=== PATIENT | male | born 1940 | race Asian ===

== ENCOUNTER 2018-05-06 08:26 | Emergency (ER) | payer OTHER, MEDICAID ==
[~2018-05-06] VITALS: Ht 167.6 cm; Wt 68.0 kg
[2018-05-06 08:34] VITALS: Ht 167.6 cm; Wt 68.0 kg
[2018-05-06] MEDS ORDERED: FINASTERIDE5 M1 PO (09:20)
[2018-05-06] MEDS ORDERED: FLO4 PO (09:20)
[2018-05-06] MEDS ORDERED: NOR10 PO (09:21)
[2018-05-06] MEDS ORDERED: MYRBETRIQ25 MG PO (09:21)
[2018-05-06] MEDS ORDERED: HYDRALAZINE HCL25 MG PO (09:22)
[2018-05-06] MEDS ORDERED: MONTELUKAST SOD10 M1 PO (09:22)
[2018-05-06] MEDS ORDERED: LOSARTAN POTAS100 M1 PO (09:22)
[2018-05-06] MEDS ORDERED: CLONIDINE HYDR0.3 M1 PO (09:22)
[2018-05-06 09:23] LABS: BASOPHIL % 0.6 % (0-2); PLATELET COUNT 227 x10^3mcL (130-400)
[2018-05-06] MEDS ORDERED: VENTOLIN H0.09 MG/A1 (09:23)
[2018-05-06] MEDS ORDERED: SIMBRINZA8 ML OP (09:23)
[2018-05-06] MEDS ORDERED: OYSTER SHELL C500 M2 PO (09:23)
[2018-05-06 09:24] LABS: CALCIUM 8.5 mg/dL (8.5-10.1); CARBON DIOXIDE 28.3 mmol/L (21-32); CHLORIDE SERUM 103 mmol/L (98-107); CREATININE SERUM 1.1 mg/dL (0.7-1.3); GLUCOSE SERUM 131 mg/dL (74-106); SODIUM SERUM 135 mmol/L (136-145)
[2018-05-06] MEDS ORDERED: ATIVAN0.5 M1 PO (09:24)
[2018-05-06] MEDS ORDERED: PROLENSA3 ML (09:24)
[2018-05-06 09:29] LABS: ALKALINE PHOSPHATASE 41 U/L (46-116); ALT/SGPT 28 U/L (16-63); AST/SGOT 21 U/L (15-37); BILIRUBIN TOTAL 0.4 mg/dL (0.20-1.00); TOTAL PROTEIN, SERUM 7.2 g/dL (6.4-8.2)
[2018-05-06 09:32] LABS: ALBUMIN 3.3 g/dL (3.4-5.0)
[2018-05-06 09:34] LABS: RED CELL DISTRIBUTION WIDTH 14.6 % (11.5-14.5)
[2018-05-06 11:00] VITALS: BP 135/74
== END 2018-05-06 11:00 | disposition left against medical advice (07) ==
LOC: ED 08:26 → DU 10:05 → ED 10:05
PROVIDERS: Emergency Medicine
DX: S09.8XXA Other specified injuries of head, initial encounter (principal); R55 Syncope and collapse; I10 Essential (primary) hypertension; W19.XXXA Unspecified fall, initial encounter; Y93.89 Activity, other specified; Y92.89 Other specified places as the place of occurrence of the external cause; Y99.8 Other external cause status
CPT/HCPCS: 36415; Q0092